=== PATIENT | female | born 1975 | race Caucasian/White ===

== ENCOUNTER → 2016-09-15 | Outpatient (REF) | payer OTHER ==
[~2016-09-15] MED LIST: ALLE180T33 PO; FLOM5CAP PO; PERC5TAB6 PO
[2016-09-15 18:42] LABS: CALCIUM OXALATE CRYSTALS SMALL
== END ==
LOC: M LAB REF 17:17
PROVIDERS: ATTEND Obstetrics & Gynecology
DX: R30.0 Dysuria (principal)

== ENCOUNTER → 2016-10-22 | Outpatient (CLI) | payer OTHER ==
--- NOTE | 2016-10-22 22:09 | REP ---
Clinical: Right flank pain with history of prior ureteral stents. Technique: Real time nunez scale ultrasound examination using curved array transducer. Findings: The bilateral kidneys are normal in contour, size, echogenicity, and reniform shape without hydronephrosis, obvious nephrolithiasis, cystic or mass lesion. No perinephric fluid collection identified. Right kidney measures 10.7 x 4.4 x 6.0 cm. Left kidney measures 9.6 x 5.7 x 6.3 cm. Bilateral punctate nephroliths cannot definitively be excluded. Bladder is incompletely distended but grossly normal in appearance. Impression: No evidence for hydronephrosis. Cannot exclude very small nonobstructing renal calculi. Signed by Osito Hamilton MD 10/22/2016 10:00 P
== END ==
LOC: M RAD 09:43
PROVIDERS: ATTEND Family Medicine
DX: R10.9 Unspecified abdominal pain (principal)

== ENCOUNTER → 2017-02-17 | Outpatient (REF) | payer OTHER ==
[~2017-02-17] MED LIST changes: +BENA25TA10 PO; +PERC5TAB12 PO; -PERC5TAB6 PO; +PRED20TA PO; +RANI150T PO
[2017-02-17 12:41] LABS: BASO % 0.4 % (0.0-1.0); EOS # 0.4 10^3/uL (0.0-0.50); IMMATURE GRANULOCYTE % 0.3 % (0-0); LYMPH # 2.3 10^3/uL (1.5-4.5); LYMPH % 31.2 % (24.0-44.0); MEAN CORPUSCULAR HEMOGLOBIN 30.1 pg (27.0-33.0); MEAN CORPUSCULAR HGB CONC 33.5 g/dl (32.0-36.5); MEAN CORPUSCULAR VOLUME 89.8 fl (80.0-96.0); MONO # 0.4 10^3/uL (0.0-0.8); MONO % 5.2 % (0.0-5.0); NEUTROPHILS # 4.2 10^3/uL (1.8-7.7); NEUTROPHILS % 57.9 % (36.0-66.0); PLATELET COUNT, AUTOMATED 269 10^3/uL (150-450); RED CELL DISTRIBUTION WIDTH 12.5 % (11.5-14.5); RETIC HEMOGLOBIN EQUIVALENT 37.9 pg (24-36); RETICULOCYTE % 1.1 % (0.5-1.5); WHITE BLOOD COUNT 7.3 10^3/uL (4.0-10.0)
[2017-02-17 12:50] LABS: FOLATE 16.6 NG/ML (>5.4); VITAMIN B12 LEVEL 616 PG/ML (247-911)
[2017-02-17 13:25] LABS: ALBUMIN 3.4 GM/DL (3.2-5.2); ALBUMIN/GLOBULIN RATIO 1.03 (1.00-1.93); ALKALINE PHOSPHATASE 75 U/L (45-117); ALT/SGPT 12 U/L (12-78); ANION GAP 6 MEQ/L (8-16); AST/SGOT 14 U/L (15-37); BILIRUBIN,TOTAL 0.3 MG/DL (0.2-1.0); BLOOD UREA NITROGEN 14 MG/DL (7-18); CALCIUM LEVEL 8.5 MG/DL (8.5-10.1); CARBON DIOXIDE LEVEL 27 MEQ/L (21-32); CHLORIDE LEVEL 106 MEQ/L (98-107); CHOLESTEROL LEVEL 223 MG/DL (<200); FERRITIN 74 NG/ML (8-252); GLOMERULAR FILTRATION RATE > 60.0 (>58); GLUCOSE, FASTING 88 MG/DL (70-105); PERCENT SATURATION 26.5 % (13.2-45.0); POTASSIUM SERUM 4.8 MEQ/L (3.5-5.1); SODIUM LEVEL 139 MEQ/L (136-145); T UPTAKE 32 % (30-39); THYROXINE (T4) 8.8 UG/DL (4.5-12.0); TOTAL IRON BINDING CAPACITY 283 UG/DL (250-450); TOTAL PROTEIN 6.7 GM/DL (6.4-8.2); TRIGLYCERIDES LEVEL 133 MG/DL (<150)
== END ==
LOC: M SFHCCLAY 08:18
PROVIDERS: ATTEND Nurse Practitioner Family
DX: L65.9 Nonscarring hair loss, unspecified (principal); R53.83 Other fatigue; E55.9 Vitamin D deficiency, unspecified; E78.5 Hyperlipidemia, unspecified

== ENCOUNTER → 2017-02-27 | Outpatient (CLI) | payer MEDICARE, OTHER ==
--- NOTE | 2017-02-27 10:08 | REPMRS ---
Patient History The patient states she has not had a clinical breast exam in over a year. Family history of unknown cancer in sister at age 26 and colorectal cancer in maternal cousin at age 50. Digital Mammo Screening Bilat: February 27, 2017 - Exam #: [id number] Bilateral CC and MLO view(s) were taken. Technologist: Carlie Wheeler Technologist Prior study comparison: November 07, 2015, bilateral digital mammo screening bilat performed at [facility]. FINDINGS: There are scattered fibroglandular densities. There has been no change in the appearance of the mammogram from the prior studies. There is a mild amount of scattered fibroglandular density which is fairly symmetric. There is no interval development of dominant mass, architectural distortion, or clustered microcalcification suggestive of malignancy. ASSESSMENT: BI-RADS/ACR category 1 mammogram. Negative. Recommendation Routine screening mammogram in 1 year (for women over age 40). This mammogram was interpreted with the aid of an FDA-approved computer-aided dectection system. Electronically Signed By: Liborio Maharaj MD 02/27/17 1007
== END ==
LOC: M RAD 09:02
PROVIDERS: ATTEND Obstetrics & Gynecology
DX: Z12.31 Encounter for screening mammogram for malignant neoplasm of breast (principal)

== ENCOUNTER 2017-03-14 09:03 | Emergency (ER) | payer MEDICARE, OTHER ==
[~2017-03-14] VITALS: Ht 162.6 cm; Wt 104.5 kg
[~2017-03-14 09:03] MED LIST changes: -BENA25TA10 PO; -PRED20TA PO; -RANI150T PO
[2017-03-14] MEDS ORDERED: RANI150T PO (09:20)
[2017-03-14] MEDS ORDERED: BENA25TA10 PO (09:20)
[2017-03-14] MEDS ORDERED: PRED20TA PO (10:49)
[2017-03-14] MEDS ORDERED: predniSONE 20 MG TAB PO ONE (11:00)
[2017-03-14 11:06] VITALS: BP 142/98
== END 2017-03-14 11:06 | disposition home or self-care (01) ==
LOC: M ED 09:03
DX: L30.9 Dermatitis, unspecified (principal); L29.9 Pruritus, unspecified; Z88.0 Allergy status to penicillin; Z88.2 Allergy status to sulfonamides; Z88.8 Allergy status to other drugs, medicaments and biological substances; Z91.040 Latex allergy status; Z91.048 Other nonmedicinal substance allergy status; Z79.899 Other long term (current) drug therapy

== ENCOUNTER → 2017-07-04 | Outpatient (REF) | payer OTHER ==
[2017-07-04 16:12] LABS: INFLUENZA A AMPLIFICATION NEGATIVE (NEGATIVE); INFLUENZA B AMPLIFICATION NEGATIVE (NEGATIVE)
== END ==
LOC: M SFHCLERA 11:17
DX: R68.89 Other general symptoms and signs (principal); J02.9 Acute pharyngitis, unspecified

== ENCOUNTER → 2017-07-14 | Outpatient (REF) | payer OTHER ==
[2017-07-14 20:52] LABS: ALBUMIN 3.8 GM/DL (3.2-5.2); ALBUMIN/GLOBULIN RATIO 1.12 (1.00-1.93); ALKALINE PHOSPHATASE 71 U/L (45-117); ALT/SGPT 13 U/L (12-78); AMYLASE 54 U/L (25-115); AST/SGOT 15 U/L (7-37); BILIRUBIN,DIRECT < 0.1 MG/DL (0.0-0.2); BILIRUBIN,TOTAL 0.3 MG/DL (0.2-1.0); LIPASE 207 U/L (73-393); TOTAL PROTEIN 7.2 GM/DL (6.4-8.2)
== END ==
LOC: M SFHCLERA 18:56
DX: R16.0 Hepatomegaly, not elsewhere classified (principal)

== ENCOUNTER → 2017-07-22 | Outpatient (CLI) | payer OTHER | LOC: M RAD 08:42 | DX: R16.0 Hepatomegaly, not elsewhere classified (principal) ==

== ENCOUNTER → 2017-09-23 | Outpatient (CLI) | payer OTHER | LOC: M LRY 13:05 | DX: S99.922A Unspecified injury of left foot, initial encounter (principal); X58.XXXA Exposure to other specified factors, initial encounter; Y92.89 Other specified places as the place of occurrence of the external cause; Y99.9 Unspecified external cause status | CPT/HCPCS: 73630 ==

== ENCOUNTER → 2017-09-30 | Outpatient (REF) | payer OTHER | LOC: M SFHCLERA 18:39 | DX: J06.9 Acute upper respiratory infection, unspecified (principal) ==

== ENCOUNTER → 2017-10-15 | Outpatient (REF) | payer OTHER | LOC: M SFHCCLAY 08:47 | DX: J02.9 Acute pharyngitis, unspecified (principal) ==

== ENCOUNTER → 2017-12-23 | Outpatient (CLI) | payer OTHER | LOC: M CLY 15:47 | DX: R10.11 Right upper quadrant pain (principal); R07.81 Pleurodynia; M54.9 Dorsalgia, unspecified | CPT/HCPCS: 71101 ==

== ENCOUNTER → 2017-12-23 | Outpatient (REF) | payer OTHER | LOC: M SFHCCLAY 15:35 | DX: R10.11 Right upper quadrant pain (principal) ==

== ENCOUNTER → 2018-02-10 | Outpatient (CLI) | payer OTHER | LOC: M WUC 08:47 | DX: M79.672 Pain in left foot (principal) | CPT/HCPCS: 73620 ==

== ENCOUNTER 2018-07-03 16:22 | Emergency (ER) | payer BC, OTHER ==
[~2018-07-03] VITALS: Ht 162.6 cm; Wt 90.5 kg
[~2018-07-03 16:22] MED LIST changes: +BENA25TA10 PO; +FLOM0.4C39 PO; -FLOM5CAP PO; +PRED20TA PO; +RANI150T PO
[2018-07-03] MEDS ORDERED: LEVOTAB10 (16:31)
[2018-07-03] MEDS ORDERED: AZEL1SPR3 (16:31)
--- NOTE | 2018-07-03 18:01 | REP ---
Right lower extremity Duplex Doppler venous ultrasound: Real time compression and duplex Doppler interrogation of the right lower extremity deep venous system is performed. The right common femoral, superficial femoral and popliteal veins are fully compressible with transducer pressure and demonstrate normal spontaneous and phasic flow, without evidence of deep venous thrombosis. Impression: No evidence of deep venous thrombosis of the right lower extremity femoral popliteal venous system. Electronically Signed by Kael Whitten MD 07/03/2018 05:53 P
[2018-07-03] MEDS ORDERED: KEFL500C17 PO (18:57)
[2018-07-03] MEDS ORDERED: CEPHALEXIN 500 MG CAP PO ONE (19:00)
[2018-07-03 19:03] VITALS: BP 128/82
== END 2018-07-03 19:04 | disposition home or self-care (01) ==
LOC: M ED 16:22
DX: L03.115 Cellulitis of right lower limb (principal); J45.909 Unspecified asthma, uncomplicated; Z88.1 Allergy status to other antibiotic agents; Z88.2 Allergy status to sulfonamides; Z88.0 Allergy status to penicillin; Z91.048 Other nonmedicinal substance allergy status; Z79.899 Other long term (current) drug therapy

== ENCOUNTER → 2018-08-12 | Outpatient (REF) | payer BC ==
[~2018-08-12] MED LIST changes: +AZEL1SPR3; +KEFL500C17 PO; +LEVOTAB10; +NAPR-50 PO; +NITR100C2; +PEPC1TAB5 PO; +ZOFR4TAB16 PO
== END ==
LOC: M SFHCCLAY 11:29
PROVIDERS: ATTEND Nurse Practitioner Family
DX: N39.0 Urinary tract infection, site not specified (principal)

== ENCOUNTER 2018-08-17 11:54 | Emergency (ER) | payer BC ==
[~2018-08-17] VITALS: Ht 162.6 cm; Wt 90.7 kg
[~2018-08-17 11:54] MED LIST changes: -NAPR-50 PO; -NITR100C2; -PEPC1TAB5 PO; -ZOFR4TAB16 PO
[2018-08-17] MEDS ORDERED: NITR100C2 (12:05)
[2018-08-17] MEDS ORDERED: NS 1,000 ML IV ONE (13:15)
[2018-08-17] MEDS ORDERED: KETOROLAC 30 MG/ML VIAL (J1885) IV ONE (13:15)
[2018-08-17] MEDS ORDERED: ONDANSETRON 4MG/2ML VIAL (J2405) IV ONE (13:15)
[2018-08-17 14:00] LABS: BASO # 0.1 10^3/uL (0.0-0.2); BASO % 0.5 % (0.0-1.0); EOS # 0.2 10^3/uL (0.0-0.50); EOS % 1.7 % (0.0-3.0); HEMATOCRIT 45.1 % (36.0-47.0); HEMOGLOBIN 15.1 g/dl (12.0-15.5); LYMPH # 2.6 10^3/uL (1.5-4.5); MEAN CORPUSCULAR HEMOGLOBIN 30.3 pg (27.0-33.0); MEAN CORPUSCULAR HGB CONC 33.5 g/dl (32.0-36.5); MEAN CORPUSCULAR VOLUME 90.6 fl (80.0-96.0); MONO # 0.4 10^3/uL (0.0-0.8); MONO % 4.3 % (0.0-5.0); NEUTROPHILS # 6.5 10^3/uL (1.8-7.7); NEUTROPHILS % 66.3 % (36.0-66.0); PLATELET COUNT, AUTOMATED 277 10^3/uL (150-450); RED BLOOD COUNT 4.98 10^6/uL (4.00-5.40); WHITE BLOOD COUNT 9.7 10^3/uL (4.0-10.0)
[2018-08-17 14:11] LABS: INR 1.04; PROTHROMBIN TIME 13.7 SECONDS (12.1-14.4)
--- NOTE | 2018-08-17 14:24 | REP ---
Clinical: Acute right upper quadrant abdominal pain. Technique: Whitten scale ultrasound using curved array transducer. Findings: The liver and visualized pancreas are normal in contour, size, and echogenicity without focal hepatic or pancreatic lesions identified. The gallbladder is normal without gallstones, wall thickening or pericholecystic fluid. No biliary ductal dilatation is appreciated, and the common bile duct measures 3.2 mm diameter. The right kidney is normal in reniform shape without hydronephrosis and measures 10.1 x 5.9 x 4.0 cm. No ascites. Visualized portions of the abdominal aorta normal. Impression: Normal right upper quadrant and gallbladder abdominal ultrasound. Electronically Signed by Osito Hamilton MD 08/17/2018 02:16 P
[2018-08-17 14:26] LABS: ALBUMIN 4.1 GM/DL (3.2-5.2); ALT/SGPT 10 U/L (12-78); AMYLASE 55 U/L (25-115); BILIRUBIN,DIRECT < 0.1 MG/DL (0.0-0.2); BILIRUBIN,TOTAL 0.5 MG/DL (0.2-1.0); BLOOD UREA NITROGEN 13 MG/DL (7-18); CALCIUM LEVEL 9.3 MG/DL (8.5-10.1); CARBON DIOXIDE LEVEL 25 MEQ/L (21-32); CHLORIDE LEVEL 106 MEQ/L (98-107); CREATININE FOR GFR 0.91 MG/DL (0.55-1.30); GLOMERULAR FILTRATION RATE > 60.0 (>58); GLUCOSE, FASTING 82 MG/DL (70-100); LIPASE 181 U/L (73-393); POTASSIUM SERUM 4.7 MEQ/L (3.5-5.1); SODIUM LEVEL 138 MEQ/L (136-145); TOTAL PROTEIN 7.9 GM/DL (6.4-8.2)
[2018-08-17] MEDS ORDERED: PEPC1TAB5 PO (14:42)
[2018-08-17] MEDS ORDERED: NAPR-837 PO (14:42)
[2018-08-17] MEDS ORDERED: ZOFR4TAB16 PO (14:42)
[2018-08-17 14:47] VITALS: BP 113/70
== END 2018-08-17 15:02 | disposition home or self-care (01) ==
LOC: M ED 11:54
DX: R10.9 Unspecified abdominal pain (principal); Z88.0 Allergy status to penicillin; Z88.2 Allergy status to sulfonamides; Z88.8 Allergy status to other drugs, medicaments and biological substances; Z91.040 Latex allergy status
CPT/HCPCS: 76705; 80048; 80076; 81001; 82150; 83690; 85025; 85610; 96374; 96375; 99284; J1885; J2405

== ENCOUNTER → 2018-09-20 | Outpatient (CLI) | payer BC ==
[~2018-09-20] MED LIST changes: +GASTROGRAFIN SOLUTION 30ML (Q9963) As Ordered ONE; +ISOVUE-370 76% 100ML VIAL (Q9967) As Ordered ONE; +NAPR-837 PO; +NITR100C2; +PEPC1TAB5 PO; +ZOFR4TAB16 PO
--- NOTE | 2018-09-21 06:06 | REP ---
Clinical: Generalized abdominal pain. Technique: Axial noncontrast images from the lung bases to the pubic symphysis with coronal and sagittal re-formations. Comparison: 09/29/2012. Findings: Lung bases are clear. Visualized heart and pericardium normal. Liver, spleen, pancreas, gallbladder, bilateral adrenal glands and kidneys are normal for noncontrast evaluation. The enteric system including stomach, small, and large bowel is without obstruction or acute inflammatory process. Normal terminal ileum and appendix identified in the right lower quadrant. Pelvis demonstrates normal collapsed bladder and evidence of prior hysterectomy. No ascites. No free air. No adenopathy. Abdominal aorta without aneurysm. Musculoskeletal structures are intact without focal osseous abnormality. Degenerative changes to the lumbosacral spine and increased periarticular sclerosis involving the sacroiliac joints (left greater than right) may reflect sacroiliitis. Impression: 1. No acute abdominopelvic pathology appreciated. 2. Correlation to exclude sacroiliitis (left greater than right). 3. Evidence of prior hysterectomy. Electronically Signed by Osito Hamilton MD 09/21/2018 05:58 A
== END ==
LOC: M RAD 13:24
PROVIDERS: ATTEND Nurse Practitioner Family
DX: R10.9 Unspecified abdominal pain (principal); M51.37 Other intervertebral disc degeneration, lumbosacral region
CPT/HCPCS: 74176; Q9963

== ENCOUNTER 2018-12-07 03:40 | Emergency (ER) | payer BC ==
[~2018-12-07] VITALS: Ht 162.6 cm; Wt 91.8 kg
[~2018-12-07 03:40] MED LIST changes: -GASTROGRAFIN SOLUTION 30ML (Q9963) As Ordered ONE; -ISOVUE-370 76% 100ML VIAL (Q9967) As Ordered ONE
[2018-12-07] MEDS ORDERED: LEVOCETIRIZINE PO (03:58)
[2018-12-07 04:18] LABS: BASO % 0.4 % (0.0-1.0); EOS # 0.3 10^3/uL (0.0-0.50); EOS % 3.4 % (0.0-3.0); HEMATOCRIT 40.2 % (36.0-47.0); HEMOGLOBIN 14.1 g/dl (12.0-15.5); LYMPH # 3.3 10^3/uL (1.5-4.5); LYMPH % 36.3 % (24.0-44.0); MEAN CORPUSCULAR HEMOGLOBIN 31.4 pg (27.0-33.0); MEAN CORPUSCULAR HGB CONC 35.1 g/dl (32.0-36.5); MEAN CORPUSCULAR VOLUME 89.5 fl (80.0-96.0); MONO # 0.6 10^3/uL (0.0-0.8); MONO % 6.4 % (0.0-5.0); NEUTROPHILS # 4.9 10^3/uL (1.8-7.7); NEUTROPHILS % 53.4 % (36.0-66.0); PLATELET COUNT, AUTOMATED 237 10^3/uL (150-450); RED BLOOD COUNT 4.49 10^6/uL (4.00-5.40); WHITE BLOOD COUNT 9.1 10^3/uL (4.0-10.0)
[2018-12-07 04:46] LABS: BLOOD UREA NITROGEN 13 MG/DL (7-18); CALCIUM LEVEL 8.2 MG/DL (8.5-10.1); CARBON DIOXIDE LEVEL 25 MEQ/L (21-32); CHLORIDE LEVEL 110 MEQ/L (98-107); CK-MB VALUE MASS 1.3 NG/ML (<3.6); CPK CREATINE PHOSPHOKINASE 152 U/L (26-192); CREATININE FOR GFR 1.07 MG/DL (0.55-1.30); GLOMERULAR FILTRATION RATE 59.6 (>58); GLUCOSE, FASTING 88 MG/DL (70-100); MB/CK RELATIVE INDEX 0.86 (< OR =4); POTASSIUM SERUM 4.2 MEQ/L (3.5-5.1); SODIUM LEVEL 142 MEQ/L (136-145); TROPONIN I < 0.02 NG/ML (< 0.10)
[2018-12-07 05:52] LABS: THYROID STIMULATING HORMONE 5.17 uIU/ML (0.358-3.740); THYROXINE (T4) 9.5 UG/DL (4.5-12.0)
[2018-12-07 06:45] VITALS: BP 126/86
--- NOTE | 2018-12-07 08:05 | REP ---
Portable chest, 04:07 a.m., single AP view with the patient upright: Comparison is 09/25/2006. The lung peñaloza are clear. The cardiac size is normal. The sabas, mediastinum, and skeletal structures are unremarkable. Impression: Negative portable chest. There is no interval change. Electronically Signed by Kael Hurst MD 12/07/2018 07:56 A
--- NOTE | 2018-12-08 08:55 | ECGEPIP ---
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
== END 2018-12-07 06:54 | disposition home or self-care (01) ==
LOC: M ED 03:40
DX: R00.2 Palpitations (principal); J45.909 Unspecified asthma, uncomplicated; Z88.0 Allergy status to penicillin; Z88.2 Allergy status to sulfonamides; Z91.048 Other nonmedicinal substance allergy status; Z91.040 Latex allergy status; Z88.1 Allergy status to other antibiotic agents; Z79.899 Other long term (current) drug therapy

== ENCOUNTER → 2018-12-15 | Outpatient (REF) | payer BC ==
[~2018-12-15] MED LIST changes: +LEVOCETIRIZINE PO
[2018-12-15 17:24] LABS: FREE T4 1.29 NG/DL (0.76-1.46); THYROID STIMULATING HORMONE 2.68 uIU/ML (0.358-3.740)
== END ==
LOC: M SFHCCLAY 09:39
PROVIDERS: ATTEND Family Medicine
DX: R68.89 Other general symptoms and signs (principal); R79.89 Other specified abnormal findings of blood chemistry

== ENCOUNTER → 2018-12-22 | Outpatient (CLI) | payer BC ==
[2018-12-22 13:46] LABS: ALBUMIN 3.7 GM/DL (3.2-5.2); ALT/SGPT 13 U/L (12-78); BILIRUBIN,TOTAL 0.3 MG/DL (0.2-1.0); BLOOD UREA NITROGEN 15 MG/DL (7-18); CALCIUM LEVEL 9.3 MG/DL (8.5-10.1); CARBON DIOXIDE LEVEL 28 MEQ/L (21-32); CHLORIDE LEVEL 107 MEQ/L (98-107); CHOLESTEROL LEVEL 218 MG/DL (<200); CHOLESTEROL RISK RATIO 4.448 (<5); CREATININE FOR GFR 1.01 MG/DL (0.55-1.30); GLOMERULAR FILTRATION RATE > 60.0 (>58); GLUCOSE, FASTING 89 MG/DL (70-100); HDL CHOLESTEROL 49 MG/DL (>40); LDL CHOLESTEROL 148 MG/DL (<100); NON-HDL-C 169 MG/DL; POTASSIUM SERUM 4.7 MEQ/L (3.5-5.1); SODIUM LEVEL 139 MEQ/L (136-145); TRIGLYCERIDES LEVEL 103 MG/DL (<150)
[2018-12-22 13:47] LABS: HEMOGLOBIN A1c 5.4 %
== END ==
LOC: M SMT 08:55
PROVIDERS: ATTEND Family Medicine
DX: E78.5 Hyperlipidemia, unspecified (principal); R94.4 Abnormal results of kidney function studies; Z13.1 Encounter for screening for diabetes mellitus

== ENCOUNTER → 2019-02-10 | Outpatient (CLI) | payer BC ==
--- NOTE | 2019-02-10 11:26 | REPMRS ---
Patient History The patient states she has not had a clinical breast exam in over a year. Family history of unknown cancer at age 26 in sister, colorectal cancer at age 50 in maternal cousin. 3D TOMOSYNTHESIS WAS PERFORMED. [facility] lifetime risk for breast cancer is 9.6%. Digital Mammo Screening Bilat: February 10, 2019 - Exam #: [id number] Bilateral CC and MLO view(s) were taken. Technologist: Jeannette Mireles, Technologist Prior study comparison: February 27, 2017, bilateral digital mammo screening bilat performed at [facility]. November 07, 2015, bilateral digital mammo screening bilat performed at [facility]. FINDINGS: The breast tissue is heterogeneously dense. This may lower the sensitivity of mammography. There has been no change in the appearance of the mammogram from the prior studies. There is a moderate amount of residual fibroglandular tissue which is fairly symmetric. There is no interval development of dominant mass, areas of architectural distortion, or clustered microcalcification typical of malignancy. Assessment: BI-RADS/ACR category 1 mammogram. Negative Mammogram. Recommendation Routine screening mammogram in 1 year (for women over age 40). This mammogram was interpreted with the aid of an FDA-approved computer-aided dectection system. Electronically Signed By: Kael Whitten MD 02/10/19 [id number]
== END ==
LOC: M RAD 09:33
PROVIDERS: ATTEND Family Medicine
DX: Z12.31 Encounter for screening mammogram for malignant neoplasm of breast (principal)

== ENCOUNTER 2019-07-05 14:20 | Emergency (ER) | payer BC ==
[~2019-07-05] VITALS: Ht 162.6 cm; Wt 102.3 kg
[2019-07-05 15:17] LABS: BASO # 0.1 10^3/uL (0.0-0.2); BASO % 0.5 % (0.0-1.0); EOS # 0.3 10^3/uL (0.0-0.5); EOS % 3.6 % (0.0-3.0); HEMATOCRIT 41.4 % (36.0-47.0); HEMOGLOBIN 13.9 g/dl (12.0-15.5); LYMPH # 3.3 10^3/uL (1.5-5.0); LYMPH % 35.6 % (24.0-44.0); MEAN CORPUSCULAR HEMOGLOBIN 30.2 pg (27.0-33.0); MEAN CORPUSCULAR HGB CONC 33.6 g/dl (32.0-36.5); MONO # 0.5 10^3/uL (0.0-0.8); MONO % 5.4 % (0.0-5.0); NEUTROPHILS % 54.8 % (36.0-66.0); PLATELET COUNT, AUTOMATED 265 10^3/uL (150-450); WHITE BLOOD COUNT 9.2 10^3/uL (4.0-10.0)
[2019-07-05 15:40] LABS: HCG, SERUM QUALITATIVE NEGATIVE (NEGATIVE)
[2019-07-05 15:51] LABS: ALBUMIN 3.5 GM/DL (3.2-5.2); ALT/SGPT 12 U/L (12-78); BILIRUBIN,DIRECT < 0.1 MG/DL (0.0-0.2); BILIRUBIN,TOTAL 0.2 MG/DL (0.2-1.0); BLOOD UREA NITROGEN 16 MG/DL (7-18); CALCIUM LEVEL 8.4 MG/DL (8.5-10.1); CARBON DIOXIDE LEVEL 27 MEQ/L (21-32); CHLORIDE LEVEL 107 MEQ/L (98-107); CREATININE FOR GFR 0.96 MG/DL (0.55-1.30); GLOMERULAR FILTRATION RATE > 60.0 (>58); GLUCOSE, FASTING 99 MG/DL (70-100); LIPASE 190 U/L (73-393); POTASSIUM SERUM 4.3 MEQ/L (3.5-5.1); SODIUM LEVEL 141 MEQ/L (136-145); TOTAL PROTEIN 6.7 GM/DL (6.4-8.2)
[2019-07-05] MEDS ORDERED: DICL75TA PO (16:09)
[2019-07-05] MEDS ORDERED: TIZA4TAB4 PO (16:09)
[2019-07-05] MEDS ORDERED: GI COCKTAIL 50ML BTL(HYOSCYAMINE/MAALOX/LIDOCAINE VISCOUS)(1:3:1) PO ONE (17:15)
[2019-07-05] MEDS ORDERED: PANTOPRAZOLE 40MG TAB (PROTONIX) PO ONE (17:15)
[2019-07-05] MEDS ORDERED: ONDANSETRON 4 MG ORAL DISINTEGRATING TAB (Q0162 PER 1MG) PO ONE (17:15)
[2019-07-05] MEDS: SUCRALFATE 1 GM TAB PO ONE ×2 (18:01→18:04)
[2019-07-05 18:14] LABS: CK-MB VALUE MASS < 1.0 NG/ML (<3.6); CPK CREATINE PHOSPHOKINASE 125 U/L (26-192); TROPONIN I < 0.02 NG/ML (< 0.10)
[2019-07-05 18:38] VITALS: BP 126/91
--- NOTE | 2019-07-05 19:29 | REPVR ---
PROCEDURE INFORMATION: Exam: US Abdomen Limited, Right Upper Quadrant Exam date and time: 07/05/2019 5:43 PM Age: 43 years old Clinical indication: Abdominal pain; Additional info: Epigastric pain, worse with eating TECHNIQUE: Imaging protocol: Real-time ultrasound of the abdomen with image documentation. Examination was focused on the right upper quadrant. COMPARISON: GALLBLADDER US 08/17/2018 1:59 PM FINDINGS: Liver: No focal hepatic lesions, coarse echotexture similar to the prior study. Gallbladder: No calculi are seen within the gallbladder. The common bile duct is not dilated measuring 2.3 mm in width. The gallbladder wall does not appear thickened. A Padilla sign was not recorded. Common bile duct: See Gallbladder Finding. Pancreas: Pancreas is echogenic which may be due to fatty infiltration. Right kidney: Right kidney measures 10.2 cm in length. There is no hydronephrosis. IMPRESSION: Limited right upper quadrant ultrasound without evidence of cholelithiasis and/or cholecystitis. Electronically signed by: Naa Rueda On 07/05/2019 19:28:37 PM
--- NOTE | 2019-07-05 20:09 | ECGEPIP ---
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
[2019-07-05] MEDS ORDERED: ISOVUE-370 76% 100ML VIAL (Q9967) As Ordered ONE (20:10)
[2019-07-05 20:27] LABS: INFLUENZA A AMPLIFICATION NEGATIVE (NEGATIVE); INFLUENZA B AMPLIFICATION NEGATIVE (NEGATIVE)
--- NOTE | 2019-07-05 20:43 | REPVR ---
PROCEDURE INFORMATION: Exam: CT Abdomen And Pelvis With Contrast Exam date and time: 07/05/2019 8:11 PM Age: 43 years old Clinical indication: Abdominal pain; Epigastric; Prior surgery; Additional info: Epigastric pain, fever, nausea TECHNIQUE: Imaging protocol: Computed tomography of the abdomen and pelvis with intravenous contrast. Radiation optimization: All CT scans at this facility use at least one of these dose optimization techniques: automated exposure control; mA and/or kV adjustment per patient size (includes targeted exams where dose is matched to clinical indication); or iterative reconstruction. Contrast material: ISOVUE 370; Contrast volume: 100 ml; Contrast route: IV; COMPARISON: CT ABD PELVIS W/O CONTRAST 09/20/2018 3:32 PM FINDINGS: Liver: There are no focal liver lesions present. Gallbladder and bile ducts: The gallbladder is normal. Pancreas: The pancreas is normal. Spleen: The spleen is normal. Adrenals: The adrenal glands are normal. Kidneys and ureters: The kidneys are normal. Stomach and bowel: There is no evidence of intestinal obstruction. Appendix: A normal appendix is identified. Intraperitoneal space: Unremarkable. No free air. No significant fluid collection. Vasculature: The aorta is normal. Lymph nodes: Unremarkable. No enlarged lymph nodes. Bladder: There may have been prior bladder surgery. Reproductive: There is a probable left ovarian cyst measuring 2.6 cm with 3 smaller follicles. The left ovary is mildly enlarged measuring 5.5 x 3.4 by 1.5 cm. Cystic structures are also seen on the prior CT of 09/20/2018. Bones/joints: Degeneration in the sacroiliac joints worse than right. Soft tissues: There is a fat-containing umbilical hernia. IMPRESSION: No abnormality is seen in the epigastric region to explain patient's pain. There are no acute findings in the abdomen or pelvis. Electronically signed by: Naa Rueda On 07/05/2019 20:42:53 PM
[2019-07-05] MEDS ORDERED: CARA1TAB6 PO (20:52)
[2019-07-05] MEDS ORDERED: OMEP40CA97 PO (20:52)
== END 2019-07-05 21:09 | disposition home or self-care (01) ==
LOC: M ED 14:20
DX: R10.13 Epigastric pain (principal); R50.9 Fever, unspecified; I49.9 Cardiac arrhythmia, unspecified; K52.9 Noninfective gastroenteritis and colitis, unspecified; G93.2 Benign intracranial hypertension; J45.909 Unspecified asthma, uncomplicated; Z79.899 Other long term (current) drug therapy; Z88.0 Allergy status to penicillin; Z88.2 Allergy status to sulfonamides; Z88.8 Allergy status to other drugs, medicaments and biological substances; Z91.89 Other specified personal risk factors, not elsewhere classified; Z91.040 Latex allergy status
CPT/HCPCS: 36415; 74177; 76705; 80048; 80076; 81001; 82550; 82553; 83690; 84484; 84703; 85025; 87502; 93005; 99284; Q0162; Q9967

== ENCOUNTER 2019-07-20 09:06 | Outpatient (RCR) | payer BC ==
[~2019-07-20 09:06] MED LIST changes: +CARA1TAB6 PO; +DICL75TA PO; +OMEP40CA97 PO; +TIZA4TAB4 PO
== END 2019-07-23 ==
LOC: M PT 09:06
PROVIDERS: ATTEND Family Medicine
DX: M46.92 Unspecified inflammatory spondylopathy, cervical region (principal)

== ENCOUNTER 2019-08-04 09:15 | Outpatient (RCR) | payer BC | END 2019-08-23 | LOC: M PT 09:15 | PROVIDERS: ATTEND Family Medicine | DX: M46.92 Unspecified inflammatory spondylopathy, cervical region (principal) ==

== ENCOUNTER → 2020-01-05 | Emergency (ER) | payer BC ==
[~2020-01-05] MED LIST changes: +ISOVUE-370 76% 100ML VIAL As Ordered ONE; +KETOROLAC 30 MG/ML 1ML VIAL As Ordered ONE; +KETOROLAC 30 MG/ML 1ML VIAL ONE; +ONDANSETRON 4MG/2ML VIAL As Ordered ONE; +ONDANSETRON 4MG/2ML VIAL ONE
--- NOTE | 2020-02-02 11:10 | ECGEPIP ---
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
[2020-02-20 01:57] LABS: BASO # 0.1 10^3/uL (0.0-0.2); BASO % 0.4 % (0.0-1.0); EOS # 0.7 10^3/uL (0.0-0.5); HEMATOCRIT 40.5 % (36.0-47.0); HEMOGLOBIN 13.6 g/dl (12.0-15.5); LYMPH # 3.3 10^3/uL (1.5-5.0); MEAN CORPUSCULAR HEMOGLOBIN 30.4 pg (27.0-33.0); MEAN CORPUSCULAR HGB CONC 33.6 g/dl (32.0-36.5); MEAN CORPUSCULAR VOLUME 90.6 fl (80.0-96.0); MONO # 0.8 10^3/uL (0.0-0.8); MONO % 6.5 % (0.0-5.0); NEUTROPHILS # 7.2 10^3/uL (1.5-8.5); NEUTROPHILS % 59.9 % (36.0-66.0); PLATELET COUNT, AUTOMATED 299 10^3/uL (150-450); RED BLOOD COUNT 4.47 10^6/uL (4.00-5.40); WHITE BLOOD COUNT 12.1 10^3/uL (4.0-10.0)
[2020-03-30 12:26] LABS: HCG, SERUM QUALITATIVE NEGATIVE (NEGATIVE)
[2020-03-30 12:32] LABS: ALBUMIN 3.5 GM/DL (3.2-5.2); ALT/SGPT 12 U/L (12-78); BILIRUBIN,TOTAL 0.5 MG/DL (0.2-1.0); BLOOD UREA NITROGEN 12 MG/DL (7-18); CALCIUM LEVEL 8.9 MG/DL (8.5-10.1); CARBON DIOXIDE LEVEL 26 MEQ/L (21-32); CHLORIDE LEVEL 105 MEQ/L (98-107); CK-MB VALUE MASS < 1.0 NG/ML (<3.6); CPK CREATINE PHOSPHOKINASE 81 U/L (26-192); CREATININE FOR GFR 1.01 MG/DL (0.55-1.30); GLOMERULAR FILTRATION RATE > 60.0 (>58); GLUCOSE, FASTING 89 MG/DL (70-100); MB/CK RELATIVE INDEX 1.23 (< OR =4); POTASSIUM SERUM 4.1 MEQ/L (3.5-5.1); SODIUM LEVEL 139 MEQ/L (136-145); TROPONIN I < 0.02 NG/ML (< 0.10)
== END | disposition home or self-care (01) ==
LOC: M ED 20:44
DX: Z90.49 Acquired absence of other specified parts of digestive tract (principal); R10.11 Right upper quadrant pain; R11.0 Nausea; G93.2 Benign intracranial hypertension; Z88.0 Allergy status to penicillin; Z88.1 Allergy status to other antibiotic agents
CPT/HCPCS: 74177; 80053; 81001; 82553; 84484; 84703; 85025; 93005; 96361; 96374; 96375; 99284; J1885; J2405; Q9967

== ENCOUNTER → 2020-04-25 | Outpatient (CLI) | payer BC ==
[~2020-04-25] MED LIST changes: -ISOVUE-370 76% 100ML VIAL As Ordered ONE; -KETOROLAC 30 MG/ML 1ML VIAL As Ordered ONE; -KETOROLAC 30 MG/ML 1ML VIAL ONE; -ONDANSETRON 4MG/2ML VIAL As Ordered ONE; -ONDANSETRON 4MG/2ML VIAL ONE
[2020-04-25 09:03] LABS: ALBUMIN 3.4 GM/DL (3.2-5.2); ALT/SGPT 11 U/L (12-78); BILIRUBIN,TOTAL 0.3 MG/DL (0.2-1.0); BLOOD UREA NITROGEN 16 MG/DL (7-18); CALCIUM LEVEL 8.7 MG/DL (8.5-10.1); CARBON DIOXIDE LEVEL 26 MEQ/L (21-32); CHLORIDE LEVEL 107 MEQ/L (98-107); CREATININE FOR GFR 1.01 MG/DL (0.55-1.30); GLOMERULAR FILTRATION RATE > 60.0 (>58); GLUCOSE, FASTING 87 MG/DL (70-100); POTASSIUM SERUM 4.6 MEQ/L (3.5-5.1); SODIUM LEVEL 138 MEQ/L (136-145); TOTAL PROTEIN 6.7 GM/DL (6.4-8.2)
== END ==
LOC: M LAB 07:35
PROVIDERS: ATTEND Internal Medicine Cardiovascular Disease
DX: R00.2 Palpitations (principal)

== ENCOUNTER → 2020-05-30 | Outpatient (CLI) | payer SELFPAY | LOC: M LABSMTC 13:20 | PROVIDERS: ATTEND Pediatrics | DX: Z20.822 Contact with and (suspected) exposure to COVID-19 (principal) ==

== ENCOUNTER → 2020-07-10 | Outpatient (REF) | payer BC ==
[2020-07-10 16:48] LABS: TOTAL PROTEIN 7.2 GM/DL (6.4-8.2)
== END ==
LOC: M SFHCCLAY 12:34
PROVIDERS: ATTEND Family Medicine
DX: D89.2 Hypergammaglobulinemia, unspecified (principal)

== ENCOUNTER → 2020-10-19 | Outpatient (CLI) | payer BC ==
--- NOTE | 2020-10-19 14:24 | REPMRS ---
Patient History The patient states she has not had a clinical breast exam in over a year. Family history of unknown cancer at age 26 in sister, colorectal cancer at age 50 in maternal cousin. Patient states no breast complaints today. Patient has signed MRS History Sheet. Digital Woman Screen Mammo: October 19, 2020 - Exam #: [id number] Bilateral CC and MLO view(s) were taken. Technologist: Carlie Wheeler, Technologist Prior study comparison: February 10, 2019, bilateral digital mammo screening bilat, performed at [facility]. February 27, 2017, bilateral digital mammo screening bilat, performed at [facility]. November 07, 2015, bilateral digital mammo screening bilat, performed at [facility]. FINDINGS: There are scattered fibroglandular densities. The Volpara volumetric breast density category is:B. There has been no change in the appearance of the mammogram from the prior studies. There is a mild amount of scattered fibroglandular density which is fairly symmetric. There is no interval development of dominant mass, architectural distortion, or grouped microcalcification suggestive of malignancy. 3-D tomosynthesis shows no additional findings. Assessment: BI-RADS/ACR category 1 mammogram. Negative Mammogram. Recommendation Routine screening mammogram of both breasts in 1 year (for women over age 40). This patient's [facility] Lifetime Breast Cancer Risk is estimated at 9.5 %. This mammogram was interpreted with the aid of an FDA-approved computer-aided dectection system. Electronically Signed By: Liborio Maharaj MD 10/19/20 4927
== END ==
LOC: M WHC 12:48
PROVIDERS: ATTEND Family Medicine
DX: Z12.31 Encounter for screening mammogram for malignant neoplasm of breast (principal); Z80.0 Family history of malignant neoplasm of digestive organs

== ENCOUNTER → 2021-01-10 | Outpatient (CLI) | payer BC ==
[~2021-01-10] MED LIST changes: +OMEP40CA4 PO; -OMEP40CA97 PO
[2021-01-10 11:37] LABS: BASO % 0.4 % (0.0-1.0); EOS # 0.3 10^3/uL (0.0-0.5); EOS % 3.4 % (0.0-3.0); HEMATOCRIT 44.4 % (36.0-47.0); HEMOGLOBIN 14.7 g/dl (12.0-15.5); LYMPH # 2.7 10^3/uL (1.5-5.0); LYMPH % 32.4 % (24.0-44.0); MEAN CORPUSCULAR HEMOGLOBIN 29.9 pg (27.0-33.0); MEAN CORPUSCULAR HGB CONC 33.1 g/dl (32.0-36.5); MEAN CORPUSCULAR VOLUME 90.4 fl (80.0-96.0); MONO # 0.6 10^3/uL (0.0-0.8); MONO % 6.5 % (2.0-8.0); NEUTROPHILS # 4.8 10^3/uL (1.5-8.5); NEUTROPHILS % 57.2 % (36.0-66.0); PLATELET COUNT, AUTOMATED 299 10^3/uL (150-450); RED BLOOD COUNT 4.91 10^6/uL (4.00-5.40); WHITE BLOOD COUNT 8.5 10^3/uL (4.0-10.0)
[2021-01-10 12:15] LABS: ALBUMIN 3.6 GM/DL (3.2-5.2); ALT/SGPT 14 U/L (12-78); BILIRUBIN,TOTAL 0.5 MG/DL (0.2-1.0); BLOOD UREA NITROGEN 11 MG/DL (7-18); CARBON DIOXIDE LEVEL 27 MEQ/L (21-32); CHLORIDE LEVEL 107 MEQ/L (98-107); CHOLESTEROL LEVEL 236 MG/DL (<200); CHOLESTEROL RISK RATIO 5.756 (<5); CREATININE FOR GFR 0.84 MG/DL (0.55-1.30); GLOMERULAR FILTRATION RATE > 60.0 (>58); GLUCOSE, FASTING 77 MG/DL (70-100); HDL CHOLESTEROL 41 MG/DL (>40); LDL CHOLESTEROL 170 MG/DL (<100); NON-HDL-C 195 MG/DL; POTASSIUM SERUM 4.6 MEQ/L (3.5-5.1); SODIUM LEVEL 139 MEQ/L (136-145); TOTAL PROTEIN 6.9 GM/DL (6.4-8.2); TRIGLYCERIDES LEVEL 124 MG/DL (<150)
[2021-01-10 12:37] LABS: APPEARANCE, URINE CLOUDY (CLEAR); BACTERIA, URINE AUTO 1+ (NEGATIVE); BILIRUBIN, URINE AUTO NEGATIVE (NEGATIVE); BLOOD, URINE BLOOD NEGATIVE (NEGATIVE); COLOR, URINE YELLOW (YELLOW); GLUCOSE, URINE (UA) AUTO NEGATIVE (NEGATIVE); KETONE, URINE AUTO NEGATIVE (NEGATIVE); LEUKOCYTE ESTERASE, URINE AUTO NEGATIVE (NEGATIVE); MUCUS, URINE SMALL (NEGATIVE); NITRITE, URINE AUTO NEGATIVE (NEGATIVE); PROTEIN, URINE AUTO 1+ mg/dL (NEGATIVE); RBC, URINE AUTO 2 /HPF (0-3); SPECIFIC GRAVITY URINE AUTO 1.023 (1.002-1.035); SQUAMOUS EPITHELIAL CELL UR AU 47 /HPF (0-6); UROBILINOGEN, URINE AUTO 0.2 mg/dL (0.0-2.0); WBC, URINE AUTO 2 /HPF (0-3)
== END ==
LOC: M LAB 09:24
PROVIDERS: ATTEND Family Medicine
DX: G56.01 Carpal tunnel syndrome, right upper limb (principal)

== ENCOUNTER → 2021-05-01 | Outpatient (REF) | LOC: M LABSMTC 13:32 | PROVIDERS: ATTEND Pediatrics | DX: Z20.822 Contact with and (suspected) exposure to COVID-19 (principal) ==

== ENCOUNTER → 2021-12-12 | Outpatient (CLI) | payer BC ==
[~2021-12-12] MED LIST changes: +TIZA10TA PO; -TIZA4TAB4 PO
== END ==
LOC: M SOG 07:42
PROVIDERS: ATTEND Orthopaedic Surgery Hand Surgery
DX: M79.641 Pain in right hand (principal)

== ENCOUNTER → 2021-12-25 | Outpatient (CLI) | payer BC ==
[2021-12-25 12:58] LABS: ALBUMIN 3.2 GM/DL (3.2-5.2); ALT/SGPT 13 U/L (12-78); BILIRUBIN,TOTAL 0.3 MG/DL (0.2-1.0); BLOOD UREA NITROGEN 14 MG/DL (7-18); CALCIUM LEVEL 8.6 MG/DL (8.5-10.1); CARBON DIOXIDE LEVEL 28 MEQ/L (21-32); CHLORIDE LEVEL 107 MEQ/L (98-107); CREATININE FOR GFR 0.91 MG/DL (0.55-1.30); GLOMERULAR FILTRATION RATE > 60.0 (>58); GLUCOSE, FASTING 98 MG/DL (70-100); POTASSIUM SERUM 3.7 MEQ/L (3.5-5.1); SODIUM LEVEL 138 MEQ/L (136-145); TOTAL PROTEIN 7.1 GM/DL (6.4-8.2)
== END ==
LOC: M LAB 10:30
PROVIDERS: ATTEND Physician Assistant
DX: M79.641 Pain in right hand (principal)

== ENCOUNTER → 2022-01-03 | Outpatient (CLI) | payer BC ==
[~2022-01-03] MED LIST changes: +PROHANCE 279.3MG/ML 15ML VIAL ONE; +PROHANCE 279.3MG/ML 5ML VIAL ONE
== END ==
LOC: M PLAIMG 07:48
PROVIDERS: ATTEND Orthopaedic Surgery Hand Surgery
DX: R22.31 Localized swelling, mass and lump, right upper limb (principal)
CPT/HCPCS: 73223; A9576

== ENCOUNTER → 2022-01-09 | Outpatient (CLI) | payer BC ==
[~2022-01-09] MED LIST changes: -PROHANCE 279.3MG/ML 15ML VIAL ONE; -PROHANCE 279.3MG/ML 5ML VIAL ONE
[2022-01-09 17:52] LABS: BASO % 0.4 % (0.0-1.0); EOS # 0.3 10^3/uL (0.0-0.5); EOS % 3.4 % (0.0-3.0); HEMATOCRIT 43.4 % (36.0-47.0); HEMOGLOBIN 14.4 g/dl (12.0-15.5); LYMPH % 32.1 % (24.0-44.0); MEAN CORPUSCULAR HEMOGLOBIN 30.1 pg (27.0-33.0); MEAN CORPUSCULAR HGB CONC 33.2 g/dl (32.0-36.5); MEAN CORPUSCULAR VOLUME 90.8 fl (80.0-96.0); MONO # 0.4 10^3/uL (0.0-0.8); MONO % 4.5 % (2.0-8.0); NEUTROPHILS # 5.5 10^3/uL (1.5-8.5); NEUTROPHILS % 59.2 % (36.0-66.0); PLATELET COUNT, AUTOMATED 276 10^3/uL (150-450); RED BLOOD COUNT 4.78 10^6/uL (4.00-5.40); WHITE BLOOD COUNT 9.3 10^3/uL (4.0-10.0)
[2022-01-09 18:20] LABS: ALBUMIN 3.6 GM/DL (3.2-5.2); ALT/SGPT 13 U/L (12-78); BILIRUBIN,TOTAL 0.3 MG/DL (0.2-1.0); BLOOD UREA NITROGEN 12 MG/DL (7-18); CALCIUM LEVEL 9.5 MG/DL (8.5-10.1); CARBON DIOXIDE LEVEL 26 MEQ/L (21-32); CHLORIDE LEVEL 104 MEQ/L (98-107); CHOLESTEROL LEVEL 226 MG/DL (<200); CHOLESTEROL RISK RATIO 6.108 (<5); CREATININE FOR GFR 0.95 MG/DL (0.55-1.30); FREE T4 1.12 NG/DL (0.76-1.46); GLOMERULAR FILTRATION RATE > 60.0 (>58); GLUCOSE, FASTING 135 MG/DL (70-100); HDL CHOLESTEROL 37 MG/DL (>40); LDL CHOLESTEROL 150 MG/DL (<100); LIPASE 180 U/L (73-393); NON-HDL-C 189 MG/DL; SODIUM LEVEL 135 MEQ/L (136-145); TOTAL PROTEIN 6.8 GM/DL (6.4-8.2); TRIGLYCERIDES LEVEL 193 MG/DL (<150)
== END ==
LOC: M PLALAB 15:15
PROVIDERS: ATTEND Family Medicine
DX: B36.9 Superficial mycosis, unspecified (principal); K29.50 Unspecified chronic gastritis without bleeding; D89.2 Hypergammaglobulinemia, unspecified; E78.00 Pure hypercholesterolemia, unspecified; H60.391 Other infective otitis externa, right ear; G93.2 Benign intracranial hypertension

== ENCOUNTER → 2022-01-19 | Outpatient (CLI) | payer BC ==
[~2022-01-19] MED LIST changes: +ALLE1TAB23 PO; +ALLE60TA69; +BENA25CA4 PO; +HYDR1CRE30 TOP; +IBUP200T46 PO; +TRAM50TA2 PO; +[UNRECOGNIZED DRUG - CODE] AU
== END ==
LOC: M LABSMTC 11:50
PROVIDERS: ATTEND Anesthesiology
DX: Z01.818 Encounter for other preprocedural examination (principal); Z11.52 Encounter for screening for COVID-19

== ENCOUNTER 2022-01-22 10:27 | Day surgery (SDC) | payer BC ==
[~2022-01-22] VITALS: Ht 162.6 cm; Wt 100.7 kg
[~2022-01-22 10:27] MED LIST changes: -ALLE1TAB23 PO; -ALLE60TA69; -BENA25CA4 PO; -HYDR1CRE30 TOP; -IBUP200T46 PO; -TRAM50TA2 PO; -[UNRECOGNIZED DRUG - CODE] AU; +ceFAZolin SOD 2 GM in IV 1 EA IV ONE
[2022-01-22] MEDS ORDERED: SCOPOLAMINE 1MG TRANSDERMAL PATCH TOP ONE (13:25)
[2022-01-22] MEDS ORDERED: LR 1,000 ML IV SCH ×2 (13:25→16:20)
[2022-01-22] MEDS ORDERED: fentaNYL 100 MCG/2 ML INJECTION As Ordered ONE (13:49)
[2022-01-22] MEDS ORDERED: MIDAZOLAM INJ 2MG/2ML VIAL (J2250 PER 1MG) As Ordered ONE (13:49)
[2022-01-22] MEDS ORDERED: dexameTHASONE 4 MG/ML 1ML VIAL (J1100 PER 1MG) As Ordered ONE (13:50)
[2022-01-22] MEDS ORDERED: ONDANSETRON 4MG 2ML VIAL As Ordered ONE (13:50)
[2022-01-22] MEDS ORDERED: propofoL 200 MG/20 ML VIAL As Ordered ONE ×2 (13:50→15:11)
[2022-01-22] MEDS ORDERED: LIDOCAINE 2% 100MG/5ML SDV (FOR ANES.) As Ordered ONE (13:50)
[2022-01-22] MEDS ORDERED: SEVOFLURANE INHAL SOLN 250 ML BTL As Ordered ONE (14:02)
[2022-01-22] MEDS ORDERED: BACITRACIN OINTMENT 30GM TUBE As Ordered ONE (14:32)
[2022-01-22] MEDS ORDERED: ACETAMINOPHEN 1000MG 100ML IV BTL (OFIRMEV) (J0131 PER 10MG) As Ordered ONE (14:56)
[2022-01-22] MEDS ORDERED: KETOROLAC 60MG 2ML VIAL As Ordered ONE (14:57)
[2022-01-22] MEDS ORDERED: METOCLOPRAMIDE INJ 10MG/2ML VIAL (J2765 PER 1) As Ordered ONE (14:58)
[2022-01-22] MEDS ORDERED: BUPIVACAINE HCL 0.25% 30ML VIAL As Ordered ONE (15:08)
[2022-01-22] MEDS ORDERED: PERCOCET 5MG/325MG TAB PO PRN (16:20)
[2022-01-22] MEDS ORDERED: ONDANSETRON 4MG 2ML VIAL IV PRN (16:20)
[2022-01-22] MEDS ORDERED: MEPERIDINE INJ 25 MG/ML VIAL (J2175) IV PRN (16:20)
[2022-01-22] MEDS ORDERED: HYDROMORPHONE HCL 0.5 MG/ 0.5 ML SYRINGE (J1170 PER 1) IV PRN (16:20)
[2022-01-22] MEDS ORDERED: TRAM50TA2 PO (16:27)
[2022-01-22 17:09] VITALS: BP 125/83
== END 2022-01-22 17:35 | disposition home or self-care (01) ==
LOC: M SDC 10:27
PROVIDERS: ATTEND Orthopaedic Surgery Hand Surgery
DX: G56.11 Other lesions of median nerve, right upper limb (principal); Z88.0 Allergy status to penicillin; Z88.2 Allergy status to sulfonamides; Z88.8 Allergy status to other drugs, medicaments and biological substances; Z91.040 Latex allergy status; G47.33 Obstructive sleep apnea (adult) (pediatric)
CPT/HCPCS: 64782; 88305; C1762; J0131; J0690; J1100; J1885; J2250; J2405; J2765; J3010

== ENCOUNTER 2022-01-24 20:32 | Emergency (ER) | payer BC ==
[~2022-01-24] VITALS: Ht 162.6 cm; Wt 102.5 kg
[~2022-01-24 20:32] MED LIST changes: +TRAM50TA2 PO; -ceFAZolin SOD 2 GM in IV 1 EA IV ONE
[2022-01-25 03:35] LABS: BASO # 0.1 10^3/uL (0.0-0.2); BASO % 0.5 % (0.0-1.0); EOS # 0.4 10^3/uL (0.0-0.5); EOS % 3.8 % (0.0-3.0); HEMATOCRIT 43.4 % (36.0-47.0); HEMOGLOBIN 14.4 g/dl (12.0-15.5); LYMPH # 3.1 10^3/uL (1.5-5.0); LYMPH % 32.4 % (24.0-44.0); MEAN CORPUSCULAR HEMOGLOBIN 30.1 pg (27.0-33.0); MEAN CORPUSCULAR HGB CONC 33.2 g/dl (32.0-36.5); MEAN CORPUSCULAR VOLUME 90.6 fl (80.0-96.0); MONO # 0.6 10^3/uL (0.0-0.8); MONO % 5.7 % (2.0-8.0); NEUTROPHILS # 5.5 10^3/uL (1.5-8.5); NEUTROPHILS % 57.4 % (36.0-66.0); PLATELET COUNT, AUTOMATED 297 10^3/uL (150-450); RED BLOOD COUNT 4.79 10^6/uL (4.00-5.40); WHITE BLOOD COUNT 9.6 10^3/uL (4.0-10.0)
[2022-01-25 04:02] LABS: BLOOD UREA NITROGEN 15 MG/DL (7-18); CALCIUM LEVEL 9.1 MG/DL (8.5-10.1); CARBON DIOXIDE LEVEL 30 MEQ/L (21-32); CHLORIDE LEVEL 107 MEQ/L (98-107); CREATININE FOR GFR 0.94 MG/DL (0.55-1.30); GLOMERULAR FILTRATION RATE > 60.0 (>58); GLUCOSE, FASTING 92 MG/DL (70-100); POTASSIUM SERUM 4.2 MEQ/L (3.5-5.1); SODIUM LEVEL 140 MEQ/L (136-145)
[2022-01-25 05:45] VITALS: BP 141/81
[2022-01-26] MEDS ORDERED: ALLE60TA69 (09:45)
[2022-01-26] MEDS ORDERED: IBUP200T46 PO (09:45)
[2022-01-26] MEDS ORDERED: PRED20TA PO ×2 (14:49→15:12)
== END 2022-01-25 05:56 | disposition home or self-care (01) ==
LOC: M ED 20:32
DX: G89.18 Other acute postprocedural pain (principal); Z79.899 Other long term (current) drug therapy; Z88.0 Allergy status to penicillin; Z88.1 Allergy status to other antibiotic agents; Z88.2 Allergy status to sulfonamides; Z88.8 Allergy status to other drugs, medicaments and biological substances; Z91.89 Other specified personal risk factors, not elsewhere classified; Z91.040 Latex allergy status

== ENCOUNTER 2022-01-26 09:35 | Emergency (ER) | payer BC ==
[~2022-01-26] VITALS: Ht 162.6 cm; Wt 101.9 kg
[2022-01-26] MEDS ORDERED: ALLE60TA69 (09:45)
[2022-01-26] MEDS ORDERED: IBUP200T46 PO (09:45)
[2022-01-26 11:55] LABS: BASO % 0.4 % (0.0-1.0); EOS # 0.6 10^3/uL (0.0-0.5); EOS % 6.9 % (0.0-3.0); HEMOGLOBIN 15.1 g/dl (12.0-15.5); LYMPH # 2.5 10^3/uL (1.5-5.0); MEAN CORPUSCULAR HEMOGLOBIN 30.3 pg (27.0-33.0); MEAN CORPUSCULAR HGB CONC 33.6 g/dl (32.0-36.5); MEAN CORPUSCULAR VOLUME 90.2 fl (80.0-96.0); MONO # 0.5 10^3/uL (0.0-0.8); MONO % 5.5 % (2.0-8.0); NEUTROPHILS # 5.6 10^3/uL (1.5-8.5); NEUTROPHILS % 59.9 % (36.0-66.0); PLATELET COUNT, AUTOMATED 302 10^3/uL (150-450); RED BLOOD COUNT 4.99 10^6/uL (4.00-5.40); WHITE BLOOD COUNT 9.3 10^3/uL (4.0-10.0)
[2022-01-26] MEDS ORDERED: FAMOTIDINE 20MG/2ML VIAL IVP ONE (12:00)
[2022-01-26] MEDS ORDERED: diphenhydrAMINE 50MG/ML VIAL (J1200) IV ONE (12:00)
[2022-01-26] MEDS ORDERED: methylPREDNISolone 125MG 2ML VIAL IV ONE (12:00)
[2022-01-26 12:19] LABS: BLOOD UREA NITROGEN 12 MG/DL (7-18); C REACTIVE PROTEIN QUANTITATIV 1.14 MG/DL (0.00-0.30); CALCIUM LEVEL 9.1 MG/DL (8.5-10.1); CARBON DIOXIDE LEVEL 28 MEQ/L (21-32); CHLORIDE LEVEL 103 MEQ/L (98-107); CREATININE FOR GFR 0.95 MG/DL (0.55-1.30); GLOMERULAR FILTRATION RATE > 60.0 (>58); GLUCOSE, FASTING 86 MG/DL (70-100); POTASSIUM SERUM 4.2 MEQ/L (3.5-5.1); SODIUM LEVEL 135 MEQ/L (136-145)
[2022-01-26 13:08] LABS: ERYTHROCYTE SEDIMENTATION RATE 18 mm/hr (0-20)
[2022-01-26] MEDS ORDERED: PRED20TA PO ×2 (14:49→15:12)
[2022-01-26 14:57] VITALS: BP 144/83
== END 2022-01-26 15:18 | disposition home or self-care (01) ==
LOC: M ED 09:35
DX: L25.9 Unspecified contact dermatitis, unspecified cause (principal); J45.909 Unspecified asthma, uncomplicated; Z79.899 Other long term (current) drug therapy; Z88.0 Allergy status to penicillin; Z88.2 Allergy status to sulfonamides; Z91.89 Other specified personal risk factors, not elsewhere classified; Z91.040 Latex allergy status
CPT/HCPCS: 80048; 83605; 85025; 85652; 86140; 87040; 87635; 96374; 96375; 99283; J1200; J2930

== ENCOUNTER 2022-01-27 21:25 | Inpatient (IN) | payer BC ==
[~2022-01-27] VITALS: Ht 162.6 cm; Wt 101.0 kg
[~2022-01-27 21:25] MED LIST changes: +ALLE60TA69; +IBUP200T46 PO
[2022-01-27] MEDS ORDERED: CLINDAMYCIN 900 MG in IV 1 EA IV ONE (23:05)
[2022-01-27 23:34] LABS: BASO % 0.1 % (0.0-1.0); EOS % 0.1 % (0.0-3.0); HEMATOCRIT 42.7 % (36.0-47.0); HEMOGLOBIN 14.5 g/dl (12.0-15.5); LYMPH # 2.3 10^3/uL (1.5-5.0); LYMPH % 11.4 % (24.0-44.0); MEAN CORPUSCULAR HEMOGLOBIN 30.3 pg (27.0-33.0); MEAN CORPUSCULAR VOLUME 89.1 fl (80.0-96.0); MONO # 1.1 10^3/uL (0.0-0.8); MONO % 5.1 % (2.0-8.0); NEUTROPHILS # 16.9 10^3/uL (1.5-8.5); NEUTROPHILS % 82.8 % (36.0-66.0); PLATELET COUNT, AUTOMATED 320 10^3/uL (150-450); RED BLOOD COUNT 4.79 10^6/uL (4.00-5.40); WHITE BLOOD COUNT 20.4 10^3/uL (4.0-10.0)
[2022-01-27 23:54] LABS: ERYTHROCYTE SEDIMENTATION RATE 18 mm/hr (0-20)
[2022-01-28 00:09] LABS: ALBUMIN 3.4 GM/DL (3.2-5.2); BILIRUBIN,DIRECT 0.1 MG/DL (0.0-0.2); BILIRUBIN,TOTAL 0.1 MG/DL (0.2-1.0); C REACTIVE PROTEIN QUANTITATIV 0.6 MG/DL (0.00-0.30); TOTAL PROTEIN 7.3 GM/DL (6.4-8.2)
[2022-01-28] MEDS ORDERED: PRED20TA PO (01:03)
[2022-01-28] MEDS ORDERED: BENA25CA4 PO (01:03)
[2022-01-28] MEDS ORDERED: ALLE1TAB23 PO (01:03)
[2022-01-28] MEDS ORDERED: TRAM50TA2 PO (01:03)
[2022-01-28] MEDS ORDERED: [UNRECOGNIZED DRUG - CODE] AU (01:03)
[2022-01-28] MEDS ORDERED: HOME MED LIST COMPLETE! XX SCH (01:05)
[2022-01-28] MEDS ORDERED: HYDROMORPHONE HCL 0.5 MG/ 0.5 ML SYRINGE (J1170 PER 1) IV PRN (01:40)
[2022-01-28] MEDS ORDERED: KETOROLAC 30 MG/ML 1ML VIAL IV PRN (01:40)
[2022-01-28] MEDS ORDERED: ACETAMINOPHEN TAB 650MG DOSE (2X325MG) PO PRN (01:40)
[2022-01-28] MEDS ORDERED: NS 1,000 ML IV ONE (03:00)
[2022-01-28] MEDS ORDERED: NS 1,000 ML IV SCH (03:00)
[2022-01-28 03:04] VITALS: BP 129/86
[2022-01-28 05:47] VITALS: BP 113/66
[2022-01-28] MEDS ORDERED: CLINDAMYCIN 600 MG in IV 1 EA IV SCH (06:00)
[2022-01-28 08:38] LABS: BASO % 0.2 % (0.0-1.0); EOS # 0.3 10^3/uL (0.0-0.5); EOS % 1.8 % (0.0-3.0); HEMOGLOBIN 12.6 g/dl (12.0-15.5); LYMPH # 4.4 10^3/uL (1.5-5.0); LYMPH % 26.9 % (24.0-44.0); MEAN CORPUSCULAR HEMOGLOBIN 29.9 pg (27.0-33.0); MEAN CORPUSCULAR HGB CONC 33.2 g/dl (32.0-36.5); MONO # 0.9 10^3/uL (0.0-0.8); MONO % 5.2 % (2.0-8.0); NEUTROPHILS # 10.7 10^3/uL (1.5-8.5); NEUTROPHILS % 65.5 % (36.0-66.0); PLATELET COUNT, AUTOMATED 271 10^3/uL (150-450); RED BLOOD COUNT 4.22 10^6/uL (4.00-5.40); WHITE BLOOD COUNT 16.3 10^3/uL (4.0-10.0)
[2022-01-28 09:00] LABS: ERYTHROCYTE SEDIMENTATION RATE 14 mm/hr (0-20)
[2022-01-28 09:09] LABS: ALBUMIN 2.9 GM/DL (3.2-5.2); ALT/SGPT 8 U/L (12-78); BILIRUBIN,TOTAL 0.2 MG/DL (0.2-1.0); BLOOD UREA NITROGEN 19 MG/DL (7-18); CALCIUM LEVEL 8.5 MG/DL (8.5-10.1); CARBON DIOXIDE LEVEL 26 MEQ/L (21-32); CHLORIDE LEVEL 108 MEQ/L (98-107); CREATININE FOR GFR 0.78 MG/DL (0.55-1.30); GLOMERULAR FILTRATION RATE > 60.0 (>58); GLUCOSE, FASTING 78 MG/DL (70-100); MAGNESIUM LEVEL 1.9 MG/DL (1.8-2.4); POTASSIUM SERUM 4.1 MEQ/L (3.5-5.1); SODIUM LEVEL 139 MEQ/L (136-145); TOTAL PROTEIN 5.7 GM/DL (6.4-8.2)
[2022-01-28] MEDS ORDERED: HYDROCORTISONE 1% CREAM 30 GM TOP ONE (11:00)
[2022-01-28 14:00] VITALS: BP 124/87
[2022-01-28] MEDS ORDERED: HYDR1CRE30 TOP (16:16)
== END 2022-01-28 18:02 | disposition home or self-care (01) | DRG 385 ==
LOC: M ED 21:25 → M ED INP 01-28 01:39 → ENRESERV 01-28 02:15 → M MSPAV 01-28 03:00
PROVIDERS: ADMIT Internal Medicine; ATTEND Internal Medicine
DX: L25.8 Unspecified contact dermatitis due to other agents (principal); D72.829 Elevated white blood cell count, unspecified; R00.0 Tachycardia, unspecified; Z20.822 Contact with and (suspected) exposure to COVID-19; Z79.52 Long term (current) use of systemic steroids; Z79.899 Other long term (current) drug therapy; Z88.0 Allergy status to penicillin; Z88.1 Allergy status to other antibiotic agents; Z88.2 Allergy status to sulfonamides; Z88.8 Allergy status to other drugs, medicaments and biological substances; Z91.040 Latex allergy status; Z91.048 Other nonmedicinal substance allergy status; Z90.79 Acquired absence of other genital organ(s)

== ENCOUNTER → 2022-01-31 | Outpatient (CLI) | payer BC ==
[~2022-01-31] MED LIST changes: +ALLE1TAB23 PO; +BENA25CA4 PO; +HYDR1CRE30 TOP; +[UNRECOGNIZED DRUG - CODE] AU
[2022-01-31 17:31] LABS: BASO # 0.1 10^3/uL (0.0-0.2); BASO % 0.4 % (0.0-1.0); EOS # 0.5 10^3/uL (0.0-0.5); EOS % 4.4 % (0.0-3.0); HEMATOCRIT 41.4 % (36.0-47.0); LYMPH # 3.4 10^3/uL (1.5-5.0); MEAN CORPUSCULAR HEMOGLOBIN 30.5 pg (27.0-33.0); MEAN CORPUSCULAR HGB CONC 33.8 g/dl (32.0-36.5); MEAN CORPUSCULAR VOLUME 90.2 fl (80.0-96.0); MONO # 0.7 10^3/uL (0.0-0.8); MONO % 5.8 % (2.0-8.0); NEUTROPHILS # 7.3 10^3/uL (1.5-8.5); NEUTROPHILS % 61.1 % (36.0-66.0); PLATELET COUNT, AUTOMATED 314 10^3/uL (150-450); RED BLOOD COUNT 4.59 10^6/uL (4.00-5.40)
[2022-01-31 18:26] LABS: ERYTHROCYTE SEDIMENTATION RATE 23 mm/hr (0-20)
== END ==
LOC: M LAB 16:57
PROVIDERS: ATTEND Orthopaedic Surgery Hand Surgery
DX: G56.10 Other lesions of median nerve, unspecified upper limb (principal); Z47.89 Encounter for other orthopedic aftercare

== ENCOUNTER → 2022-02-10 | Outpatient (CLI) | payer BC ==
[2022-02-10 17:41] LABS: BASO % 0.2 % (0.0-1.0); EOS # 0.6 10^3/uL (0.0-0.5); EOS % 5.3 % (0.0-3.0); HEMATOCRIT 44.9 % (36.0-47.0); HEMOGLOBIN 14.5 g/dl (12.0-15.5); LYMPH # 3.3 10^3/uL (1.5-5.0); LYMPH % 28.7 % (24.0-44.0); MEAN CORPUSCULAR HEMOGLOBIN 29.7 pg (27.0-33.0); MEAN CORPUSCULAR HGB CONC 32.3 g/dl (32.0-36.5); MONO # 0.9 10^3/uL (0.0-0.8); MONO % 7.4 % (2.0-8.0); NEUTROPHILS # 6.7 10^3/uL (1.5-8.5); PLATELET COUNT, AUTOMATED 289 10^3/uL (150-450); RED BLOOD COUNT 4.88 10^6/uL (4.00-5.40); WHITE BLOOD COUNT 11.5 10^3/uL (4.0-10.0)
[2022-02-10 18:19] LABS: ERYTHROCYTE SEDIMENTATION RATE 12 mm/hr (0-20)
== END ==
LOC: M LAB 16:47
PROVIDERS: ATTEND Orthopaedic Surgery Hand Surgery
DX: M25.631 Stiffness of right wrist, not elsewhere classified (principal); L23.9 Allergic contact dermatitis, unspecified cause; M25.461 Effusion, right knee

== ENCOUNTER → 2022-04-25 | Outpatient (REF) | payer BC | LOC: M PLALAB 12:02 | PROVIDERS: ATTEND Nurse Practitioner Family | DX: Z11.3 Encounter for screening for infections with a predominantly sexual mode of transmission (principal); Z53.9 Procedure and treatment not carried out, unspecified reason ==

== ENCOUNTER → 2022-05-07 | Outpatient (REF) | payer BC | LOC: M SFHCWAGY 10:01 | PROVIDERS: ATTEND Nurse Practitioner Family | DX: Z12.4 Encounter for screening for malignant neoplasm of cervix (principal); R87.615 Unsatisfactory cytologic smear of cervix | CPT/HCPCS: 87624; G0123 ==

== ENCOUNTER → 2023-01-05 | Outpatient (CLI) | payer BC | LOC: M SOG 16:09 | PROVIDERS: ATTEND Orthopaedic Surgery Hand Surgery | DX: M79.671 Pain in right foot (principal) ==

== ENCOUNTER → 2023-01-13 | Outpatient (REF) | payer BC ==
[2023-01-13 12:35] LABS: BASO % 0.5 % (0.0-1.0); EOS # 0.3 10^3/uL (0.0-0.5); EOS % 3.5 % (0.0-3.0); HEMATOCRIT 45.8 % (36.0-47.0); HEMOGLOBIN 15.3 g/dl (12.0-15.5); LYMPH # 2.7 10^3/uL (1.5-5.0); LYMPH % 32.4 % (24.0-44.0); MEAN CORPUSCULAR HEMOGLOBIN 30.4 pg (27.0-33.0); MEAN CORPUSCULAR HGB CONC 33.4 g/dl (32.0-36.5); MEAN CORPUSCULAR VOLUME 90.9 fl (80.0-96.0); MONO # 0.6 10^3/uL (0.0-0.8); MONO % 7.1 % (2.0-8.0); NEUTROPHILS # 4.7 10^3/uL (1.5-8.5); NEUTROPHILS % 56.3 % (36.0-66.0); PLATELET COUNT, AUTOMATED 320 10^3/uL (150-450); RED BLOOD COUNT 5.04 10^6/uL (4.00-5.40); WHITE BLOOD COUNT 8.3 10^3/uL (4.0-10.0)
[2023-01-13 13:03] LABS: ALBUMIN 3.5 G/DL (3.2-5.2); ALKALINE PHOSPHATASE 76 U/L (46-116); ALT/SGPT < 9 U/L (7.0-40); AST/SGOT 14 U/L (<34); BILIRUBIN,TOTAL 0.3 MG/DL (0.3-1.2); BLOOD UREA NITROGEN 11 MG/DL (9-23); CALCIUM LEVEL 8.8 MG/DL (8.5-10.1); CARBON DIOXIDE LEVEL 27 MMOL/L (20-31); CHLORIDE LEVEL 105 MMOL/L (98-107); CHOLESTEROL LEVEL 243 MG/DL (<200); CHOLESTEROL RISK RATIO 6.18 (<5); CREATININE FOR GFR 0.87 MG/DL (0.55-1.30); GLOMERULAR FILTRATION RATE > 60.0 (>58); GLUCOSE, FASTING 83 MG/DL (60-100); HDL CHOLESTEROL 39.3 MG/DL (>40); LDL CHOLESTEROL 158.7 MG/DL (<100); NON-HDL-C 203.7 MG/DL; POTASSIUM SERUM 4.5 MMOL/L (3.5-5.1); SODIUM LEVEL 140 MMOL/L (136-145); TOTAL PROTEIN 6.6 G/DL (5.7-8.2); TRIGLYCERIDES LEVEL 225 MG/DL (<150)
[2023-01-13 13:04] LABS: FREE T4 1.15 NG/DL (0.89-1.76); HEMOGLOBIN A1c 4.9 % (4.0-6.0)
== END ==
LOC: M SFHCCLAY 08:27
PROVIDERS: ATTEND Family Medicine
DX: E78.5 Hyperlipidemia, unspecified (principal); Z90.49 Acquired absence of other specified parts of digestive tract; E78.00 Pure hypercholesterolemia, unspecified; E28.2 Polycystic ovarian syndrome

== ENCOUNTER 2023-01-25 12:53 | Emergency (ER) | payer BC ==
[~2023-01-25] VITALS: Ht 160 cm; Wt 104.6 kg
[2023-01-25 13:33] LABS: BASO % 0.3 % (0.0-1.0); EOS # 0.3 10^3/uL (0.0-0.5); EOS % 2.8 % (0.0-3.0); HEMATOCRIT 42.9 % (36.0-47.0); HEMOGLOBIN 14.6 g/dl (12.0-15.5); LYMPH % 29.7 % (24.0-44.0); MEAN CORPUSCULAR HEMOGLOBIN 30.6 pg (27.0-33.0); MEAN CORPUSCULAR VOLUME 89.9 fl (80.0-96.0); MONO # 0.8 10^3/uL (0.0-0.8); MONO % 7.4 % (2.0-8.0); NEUTROPHILS % 59.7 % (36.0-66.0); PLATELET COUNT, AUTOMATED 293 10^3/uL (150-450); RED BLOOD COUNT 4.77 10^6/uL (4.00-5.40); WHITE BLOOD COUNT 10.1 10^3/uL (4.0-10.0)
[2023-01-25 13:51] LABS: INR 1.01
[2023-01-25 13:52] LABS: PARTIAL THROMBOPLASTIN TIME 28.7 SECONDS (24.8-34.2)
[2023-01-25 13:59] LABS: LIPASE 40 U/L (12-53)
[2023-01-25 14:01] LABS: ALBUMIN 3.4 G/DL (3.2-5.2); ALKALINE PHOSPHATASE 72 U/L (46-116); ALT/SGPT < 9 U/L (7.0-40); AST/SGOT 13 U/L (<34); BILIRUBIN,DIRECT < 0.1 MG/DL (<0.4); BILIRUBIN,TOTAL 0.3 MG/DL (0.3-1.2); BLOOD UREA NITROGEN 15 MG/DL (9-23); CALCIUM LEVEL 9.1 MG/DL (8.5-10.1); CARBON DIOXIDE LEVEL 27 MMOL/L (20-31); CHLORIDE LEVEL 105 MMOL/L (98-107); CK-MB VALUE MASS < 1.0 NG/ML (<3.6); CREATININE FOR GFR 0.84 MG/DL (0.55-1.30); GLOMERULAR FILTRATION RATE > 60.0 (>58); GLUCOSE, FASTING 98 MG/DL (60-100); MAGNESIUM LEVEL 1.7 MG/DL (1.8-2.4); POTASSIUM SERUM 4.3 MMOL/L (3.5-5.1); SODIUM LEVEL 138 MMOL/L (136-145); TOTAL PROTEIN 6.5 G/DL (5.7-8.2)
[2023-01-25 14:02] LABS: THYROID STIMULATING HORMONE 2.475 uIU/ML (0.55-4.78)
[2023-01-25 14:03] LABS: FREE T4 0.99 NG/DL (0.89-1.76)
[2023-01-25 14:04] LABS: CPK CREATINE PHOSPHOKINASE 106 U/L (34-145); MB/CK RELATIVE INDEX 0.94 (< OR =4)
[2023-01-25] MEDS ORDERED: ISOVUE-370 76% 100ML VIAL As Ordered ONE (14:07)
[2023-01-25 15:13] LABS: CK-MB VALUE MASS < 1.0 NG/ML (<3.6)
[2023-01-25 15:14] LABS: CPK CREATINE PHOSPHOKINASE 92 U/L (34-145); MB/CK RELATIVE INDEX 1.08 (< OR =4)
[2023-01-25 15:16] LABS: RSV AMPLIFICATION NEGATIVE (NEGATIVE)
[2023-01-25 15:41] VITALS: BP 123/78; TEMP 97.7; O2SAT 96
== END 2023-01-25 15:43 | disposition home or self-care (01) ==
LOC: M ED 12:53
DX: R07.9 Chest pain, unspecified (principal); R51.9 Headache, unspecified; J45.909 Unspecified asthma, uncomplicated; F41.9 Anxiety disorder, unspecified; Z88.1 Allergy status to other antibiotic agents; Z88.2 Allergy status to sulfonamides; Z88.8 Allergy status to other drugs, medicaments and biological substances; Z91.048 Other nonmedicinal substance allergy status; Z79.899 Other long term (current) drug therapy
CPT/HCPCS: 36415; 71045; 71275; 80048; 80076; 82550; 82553; 83690; 83735; 83880; 84439; 84443; 84484; 85025; 85610; 85730; 87631; 93005; 93041; 94760; 99285; Q9967

== ENCOUNTER → 2023-05-07 | Outpatient (CLI) | payer BC ==
[~2023-05-07] MED LIST changes: -ALLE1TAB23 PO; +FEXO-157 PO
== END ==
LOC: M RAD 13:06
PROVIDERS: ATTEND Physician Assistant Medical
DX: R05.1 Acute cough (principal)

== ENCOUNTER 2023-06-12 17:19 | Emergency (ER) | payer BC ==
[~2023-06-12] VITALS: Ht 162.6 cm; Wt 107.5 kg
[2023-06-12 17:20] VITALS: BP 179/88; TEMP 98.2; O2SAT 99
[2023-06-12] MEDS ORDERED: AMOX200S2 PO (17:40)
== END 2023-06-12 18:57 | disposition left against medical advice (07) ==
LOC: M ED 17:19
DX: Z53.21 Procedure and treatment not carried out due to patient leaving prior to being seen by health care provider (principal)

== ENCOUNTER → 2023-06-24 | Outpatient (REF) | payer BC, OTHER ==
[~2023-06-24] MED LIST changes: +AMOX200S2 PO
== END ==
LOC: M SFHCWAGY 13:00
PROVIDERS: ATTEND Nurse Practitioner Family
DX: N73.9 Female pelvic inflammatory disease, unspecified (principal)

== ENCOUNTER → 2023-07-08 | Outpatient (CLI) | payer OTHER | LOC: M SLEEP HO 10:30 | PROVIDERS: ATTEND Nurse Practitioner Family | DX: G47.33 Obstructive sleep apnea (adult) (pediatric) (principal) ==

== ENCOUNTER → 2023-07-15 | Outpatient (REF) | payer OTHER ==
[2023-07-15 12:02] LABS: BASO % 0.6 % (0.0-1.0); EOS # 0.2 10^3/uL (0.0-0.5); EOS % 3.4 % (0.0-3.0); HEMATOCRIT 44.7 % (36.0-47.0); LYMPH # 2.4 10^3/uL (1.5-5.0); LYMPH % 33.9 % (24.0-44.0); MEAN CORPUSCULAR HEMOGLOBIN 30.5 pg (27.0-33.0); MEAN CORPUSCULAR HGB CONC 33.6 g/dl (32.0-36.5); MONO # 0.4 10^3/uL (0.0-0.8); MONO % 5.5 % (2.0-8.0); NEUTROPHILS % 56.5 % (36.0-66.0); PLATELET COUNT, AUTOMATED 337 10^3/uL (150-450); RED BLOOD COUNT 4.91 10^6/uL (4.00-5.40); WHITE BLOOD COUNT 7.1 10^3/uL (4.0-10.0)
[2023-07-15 12:07] LABS: ERYTHROCYTE SEDIMENTATION RATE 28 mm/hr (0-20)
[2023-07-15 12:34] LABS: ALBUMIN 3.3 G/DL (3.2-5.2); ALKALINE PHOSPHATASE 75 U/L (46-116); ALT/SGPT < 9 U/L (7.0-40); AST/SGOT 14 U/L (<34); BILIRUBIN,TOTAL 0.4 MG/DL (0.3-1.2); BLOOD UREA NITROGEN 16 MG/DL (9-23); CALCIUM LEVEL 8.7 MG/DL (8.5-10.1); CARBON DIOXIDE LEVEL 29 MMOL/L (20-31); CHLORIDE LEVEL 105 MMOL/L (98-107); CREATININE FOR GFR 0.89 MG/DL (0.55-1.30); GLOMERULAR FILTRATION RATE > 60.0 (>58); GLUCOSE, FASTING 89 MG/DL (60-100); POTASSIUM SERUM 4.4 MMOL/L (3.5-5.1); SODIUM LEVEL 138 MMOL/L (136-145); TOTAL PROTEIN 6.7 G/DL (5.7-8.2)
[2023-07-15 12:35] LABS: RHEUMATOID FACTOR QUANT 4.1 IU/ML (<14)
[2023-07-15 12:36] LABS: FREE T4 1.08 NG/DL (0.89-1.76); THYROID STIMULATING HORMONE 3.672 uIU/ML (0.55-4.78)
[2023-07-16 23:10] LABS: ANA (HEP2) Negative (.); CYCLIC CITRULLINATED PEPTIDE 5 units (0-19); IgG P18 AB Absent (.); IgG P23 AB Absent (.); IgG P28 AB Absent (.); IgG P30 AB Absent (.); IgG P39 AB Absent (.); IgG P41 AB Absent (.); IgG P45 AB Absent (.); IgG P66 AB Absent (.); IgG P93 AB Absent (.); IgM P23 AB Absent (.); IgM P39 AB Absent (.); IgM P41 AB Absent (.); LYME IgG WB INTERPRETATION Negative (.); LYME IgM WB INTERPRETATION Negative (.)
== END ==
LOC: M SFHCCLAY 08:12
PROVIDERS: ATTEND Family Medicine
DX: R21 Rash and other nonspecific skin eruption (principal); W57.XXXS Bitten or stung by nonvenomous insect and other nonvenomous arthropods, sequela

== ENCOUNTER → 2023-07-20 | Outpatient (CLI) | payer OTHER | LOC: M LAB 14:12 | PROVIDERS: ATTEND Family Medicine | DX: D89.2 Hypergammaglobulinemia, unspecified (principal) ==

== ENCOUNTER → 2023-08-24 | Outpatient (CLI) | payer OTHER | LOC: M PLAIMG 13:29 | PROVIDERS: ATTEND Podiatrist Foot & Ankle Surgery | DX: R22.41 Localized swelling, mass and lump, right lower limb (principal); M19.071 Primary osteoarthritis, right ankle and foot; D36.13 Benign neoplasm of peripheral nerves and autonomic nervous system of lower limb, including hip ==

== ENCOUNTER → 2023-09-18 | Outpatient (REF) | payer OTHER | LOC: M SFHCCLAY 14:57 | PROVIDERS: ATTEND Physician Assistant | DX: N02.9 Recurrent and persistent hematuria with unspecified morphologic changes (principal) ==

== ENCOUNTER → 2023-09-23 | Outpatient (CLI) | payer OTHER | LOC: M WHC 11:57 | PROVIDERS: ATTEND Physician Assistant | DX: N02.9 Recurrent and persistent hematuria with unspecified morphologic changes (principal); N83.201 Unspecified ovarian cyst, right side ==

== ENCOUNTER → 2023-09-25 | Outpatient (REF) | payer OTHER | LOC: M SFHCCLAY 07:15 | PROVIDERS: ATTEND Family Medicine | DX: D36.10 Benign neoplasm of peripheral nerves and autonomic nervous system, unspecified (principal); Z53.9 Procedure and treatment not carried out, unspecified reason ==

== ENCOUNTER → 2023-09-30 | Outpatient (CLI) | payer OTHER | LOC: M LAB 14:27 | PROVIDERS: ATTEND Family Medicine | DX: D36.10 Benign neoplasm of peripheral nerves and autonomic nervous system, unspecified (principal) ==

== ENCOUNTER → 2023-10-12 | Outpatient (REF) | payer OTHER ==
[2023-10-12 17:44] LABS: AMORPHOUS SEDIMENT SMALL (NEGATIVE); APPEARANCE, URINE TURBID (CLEAR); BACTERIA, URINE AUTO NEGATIVE (NEGATIVE); BILIRUBIN, URINE AUTO NEGATIVE (NEGATIVE); BLOOD, URINE BLOOD NEGATIVE (NEGATIVE); COLOR, URINE YELLOW (YELLOW); GLUCOSE, URINE (UA) AUTO NEGATIVE (NEGATIVE); KETONE, URINE AUTO TRACE mg/dL (NEGATIVE); LEUKOCYTE ESTERASE, URINE AUTO NEGATIVE (NEGATIVE); MUCUS, URINE LARGE (NEGATIVE); NITRITE, URINE AUTO NEGATIVE (NEGATIVE); PROTEIN, URINE AUTO 1+ mg/dL (NEGATIVE); RBC, URINE AUTO 0 /HPF (0-3); SQUAMOUS EPITHELIAL CELL UR AU 9 /HPF (0-6); WBC, URINE AUTO 173 /HPF (0-3)
== END ==
LOC: M SMT 16:49
PROVIDERS: ATTEND Nurse Practitioner Family
DX: R31.0 Gross hematuria (principal)

== ENCOUNTER → 2023-10-15 | Outpatient (CLI) | payer OTHER ==
[2023-10-15 15:29] LABS: BLOOD UREA NITROGEN 16 MG/DL (9-23); CALCIUM LEVEL 9.1 MG/DL (8.5-10.1); CARBON DIOXIDE LEVEL 27 MMOL/L (20-31); CHLORIDE LEVEL 104 MMOL/L (98-107); CREATININE FOR GFR 0.91 MG/DL (0.55-1.30); GLOMERULAR FILTRATION RATE > 60.0 (>58); GLUCOSE, FASTING 91 MG/DL (60-100); POTASSIUM SERUM 4.3 MMOL/L (3.5-5.1); SODIUM LEVEL 137 MMOL/L (136-145)
== END ==
LOC: M LAB 14:38
PROVIDERS: ATTEND Nurse Practitioner Family
DX: R31.0 Gross hematuria (principal)

== ENCOUNTER → 2023-10-16 | Outpatient (CLI) | payer OTHER ==
[~2023-10-16] MED LIST changes: +ISOVUE-370 76% 100ML VIAL ONE
[2023-10-16 14:38] LABS: APPEARANCE, URINE CLEAR (CLEAR); BACTERIA, URINE AUTO NEGATIVE (NEGATIVE); BILIRUBIN, URINE AUTO NEGATIVE (NEGATIVE); BLOOD, URINE BLOOD NEGATIVE (NEGATIVE); COLOR, URINE STRAW (YELLOW); GLUCOSE, URINE (UA) AUTO NEGATIVE (NEGATIVE); KETONE, URINE AUTO NEGATIVE (NEGATIVE); LEUKOCYTE ESTERASE, URINE AUTO NEGATIVE (NEGATIVE); MUCUS, URINE SMALL (NEGATIVE); NITRITE, URINE AUTO NEGATIVE (NEGATIVE); PROTEIN, URINE AUTO NEGATIVE (NEGATIVE); RBC, URINE AUTO 0 /HPF (0-3); SPECIFIC GRAVITY URINE AUTO 1.058 (1.002-1.035); SQUAMOUS EPITHELIAL CELL UR AU 9 /HPF (0-6); UROBILINOGEN, URINE AUTO 0.2 mg/dL (0.0-2.0); WBC, URINE AUTO 0 /HPF (0-3)
== END ==
LOC: M PLAIMG 08:37
PROVIDERS: ATTEND Nurse Practitioner Family
DX: R31.0 Gross hematuria (principal); Z87.440 Personal history of urinary (tract) infections; N28.1 Cyst of kidney, acquired

== ENCOUNTER → 2023-10-26 | Outpatient (CLI) | payer OTHER ==
[~2023-10-26] MED LIST changes: -ISOVUE-370 76% 100ML VIAL ONE
== END ==
LOC: M LAB 08:38
PROVIDERS: ATTEND Family Medicine
DX: D36.10 Benign neoplasm of peripheral nerves and autonomic nervous system, unspecified (principal)

== ENCOUNTER → 2023-11-10 | Outpatient (CLI) | payer OTHER | LOC: M PLAIMG 07:11 | PROVIDERS: ATTEND Nurse Practitioner Family | DX: G95.0 Syringomyelia and syringobulbia (principal); Q06.4 Hydromyelia ==

== ENCOUNTER → 2023-11-11 | Outpatient (CLI) | payer OTHER | LOC: M PLAIMG 06:57 | PROVIDERS: ATTEND Nurse Practitioner Family | DX: G95.0 Syringomyelia and syringobulbia (principal); G93.5 Compression of brain; M54.12 Radiculopathy, cervical region; M50.222 Other cervical disc displacement at C5-C6 level ==

== ENCOUNTER → 2024-01-13 | Outpatient (CLI) | payer OTHER ==
[~2024-01-13] MED LIST changes: -FEXO-157 PO; +FEXO-63 PO
== END ==
LOC: M SLEEP 20:00
PROVIDERS: ATTEND Nurse Practitioner Family
DX: G47.33 Obstructive sleep apnea (adult) (pediatric) (principal)

== ENCOUNTER → 2024-03-31 | Outpatient (REF) | payer OTHER | LOC: M SFHCCLAY 13:00 | PROVIDERS: ATTEND Family Medicine | DX: R53.83 Other fatigue (principal); E28.2 Polycystic ovarian syndrome; Z53.9 Procedure and treatment not carried out, unspecified reason ==

== ENCOUNTER → 2024-04-01 | Outpatient (CLI) | payer OTHER ==
[2024-04-01 09:09] LABS: HEMOGLOBIN A1c 5.5 % (4.0-6.0)
[2024-04-01 09:28] LABS: ALBUMIN 3.3 G/DL (3.2-5.2); ALKALINE PHOSPHATASE 73 U/L (35-104); ALT/SGPT 14 U/L (7.0-40); AST/SGOT 47 U/L (<34); BILIRUBIN,TOTAL 0.4 MG/DL (0.3-1.2); BLOOD UREA NITROGEN 19 MG/DL (9-23); CALCIUM LEVEL 9.1 MG/DL (8.5-10.1); CARBON DIOXIDE LEVEL 26 MMOL/L (20-31); CHLORIDE LEVEL 109 MMOL/L (98-107); CHOLESTEROL LEVEL 256 MG/DL (<200); CHOLESTEROL RISK RATIO 7.03 (<5); CREATININE FOR GFR 1.01 MG/DL (0.55-1.30); GLOMERULAR FILTRATION RATE > 60.0 (>58); GLUCOSE, FASTING 88 MG/DL (60-100); HDL CHOLESTEROL 36.4 MG/DL (>40); LDL CHOLESTEROL 187.8 MG/DL (<100); NON-HDL-C 219.6 MG/DL; POTASSIUM SERUM 4.6 MMOL/L (3.5-5.1); SODIUM LEVEL 139 MMOL/L (136-145); TOTAL PROTEIN 6.6 G/DL (5.7-8.2); TRIGLYCERIDES LEVEL 159 MG/DL (<150)
[2024-04-01 09:29] LABS: FREE T4 1.15 NG/DL (0.89-1.76); TESTOSTERONE 21 NG/DL (14-76); THYROID STIMULATING HORMONE 1.888 uIU/ML (0.55-4.78)
[2024-04-01 09:30] LABS: PROGESTERONE 0.29 NG/ML
[2024-04-02 08:11] LABS: SEX HORM BINDING GLOB 23.7 nmol/L (24.6-122.0); TESTOSTERONE 14 ng/dL (4-50)
== END ==
LOC: M LAB 08:10
PROVIDERS: ATTEND Family Medicine
DX: E78.5 Hyperlipidemia, unspecified (principal); R53.83 Other fatigue; E28.2 Polycystic ovarian syndrome

== ENCOUNTER → 2024-07-05 | Outpatient (REF) | payer OTHER ==
[2024-07-05 13:26] LABS: ALBUMIN 3.6 G/DL (3.2-5.2); ALKALINE PHOSPHATASE 76 U/L (35-104); ALT/SGPT < 9 U/L (7.0-40); AST/SGOT 16 U/L (<34); BILIRUBIN,TOTAL 0.4 MG/DL (0.3-1.2); BLOOD UREA NITROGEN 15 MG/DL (9-23); CALCIUM LEVEL 9.4 MG/DL (8.5-10.1); CARBON DIOXIDE LEVEL 30 MMOL/L (20-31); CHLORIDE LEVEL 103 MMOL/L (98-107); CREATININE FOR GFR 0.93 MG/DL (0.55-1.30); GLOMERULAR FILTRATION RATE > 60.0 (>58); GLUCOSE, FASTING 86 MG/DL (60-100); POTASSIUM SERUM 4.6 MMOL/L (3.5-5.1); SODIUM LEVEL 140 MMOL/L (136-145); TOTAL PROTEIN 6.9 G/DL (5.7-8.2)
== END ==
LOC: M SFHCCLAY 08:46
PROVIDERS: ATTEND Nurse Practitioner Family
DX: R74.8 Abnormal levels of other serum enzymes (principal)

== ENCOUNTER → 2025-05-09 | Outpatient (REF) | payer OTHER ==
[~2025-05-09] MED LIST changes: -FLOM0.4C39 PO; +TAMS-18 PO
[2025-05-09 19:10] LABS: BASO # 0.0 10^3/uL (0.0-0.2); BASO % 0.5 % (0.0-1.0); EOS # 0.3 10^3/uL (0.0-0.5); EOS % 3.0 % (0.0-3.0); LYMPH # 3.1 10^3/uL (1.5-5.0); LYMPH % 36.2 % (24.0-44.0); MONO # 0.5 10^3/uL (0.0-0.8); MONO % 5.6 % (2.0-8.0); NEUTROPHILS # 4.7 10^3/uL (1.5-8.5); NEUTROPHILS % 54.6 % (36.0-66.0); PLATELET COUNT, AUTOMATED 330 10^3/uL (150-450)
[2025-05-09 19:15] LABS: ALT/SGPT 10.0 U/L (7.0-40); AST/SGOT 17.0 U/L (<34); CALCIUM LEVEL 9.3 MG/DL (8.5-10.1); CARBON DIOXIDE LEVEL 32.0 MMOL/L (20-31); CHLORIDE LEVEL 102.0 MMOL/L (98-107); CHOLESTEROL LEVEL 233.0 MG/DL (<200); CHOLESTEROL RISK RATIO 5.86 (<5); CREATININE FOR GFR 0.94 MG/DL (0.55-1.30); GLOMERULAR FILTRATION RATE 74.4 (>58); LDL CHOLESTEROL 142.9 MG/DL (<100); MAGNESIUM LEVEL 2.0 MG/DL (1.8-2.4); NON-HDL-C 193.3 MG/DL; POTASSIUM SERUM 4.4 MMOL/L (3.5-5.1); SODIUM LEVEL 138.0 MMOL/L (136-145); TRIGLYCERIDES LEVEL 252.0 MG/DL (<150)
[2025-05-09 19:17] LABS: FREE T4 1.15 NG/DL (0.89-1.76)
[2025-05-09 19:19] LABS: ESTIMATED AVERAGE GLUCOSE 105.0 MG/DL (60-110)
== END ==
LOC: M SFHCCLAY 13:38
PROVIDERS: ATTEND Nurse Practitioner Family
DX: E28.2 Polycystic ovarian syndrome (principal); E78.5 Hyperlipidemia, unspecified; Z68.39 Body mass index [BMI] 39.0-39.9, adult; E66.812 Obesity, class 2; R00.2 Palpitations